=== PATIENT | female | born 1970 | race African-American/Black ===

== ENCOUNTER 2017-10-06 11:34 | Emergency (ER) | payer OTHER ==
[~2017-10-06] VITALS: Ht 175.3 cm; Wt 97.9 kg
[~2017-10-06 11:34] MED LIST: IRON; NOHOMEMEDS; [UNRECOGNIZED DRUG - REMARK]
[2017-10-06] MEDS ORDERED: CLEOCIN150 MG PO (13:56)
[2017-10-06 14:04] VITALS: BP 151/70
== END 2017-10-06 14:05 | disposition home or self-care (01) ==
LOC: EME 11:34
DX: L02.31 Cutaneous abscess of buttock (principal); Z88.5 Allergy status to narcotic agent; Z88.8 Allergy status to other drugs, medicaments and biological substances
CPT/HCPCS: 99281; 99284